=== PATIENT | female | born 1960 | race Caucasian/White ===

== ENCOUNTER 2019-12-21 23:39 | Inpatient (IN) | payer MEDICAID, OTHER ==
[~2019-12-21] VITALS: Ht 160 cm; Wt 72.1 kg
[2019-12-21] MEDS ORDERED: ALBUTEROL SULF 2.5 MG/0.5ML(0.5%) NEB SOLN NEB ONE (23:45)
[2019-12-21] MEDS ORDERED: IPRATROPIUM BROM 0.5 MG/2.5ML INH SOL NEB ONE (23:45)
[2019-12-22 00:19] LABS: Basophils # (auto) 0.1 10 ^3/uL (0-0.2); Basophils % (auto) 0.9 % (0.0-2.0); Eosinophils # (auto) 0.1 10 ^3/uL (0-0.8); Eosinophils % (auto) 1.1 % (0.0-7.0); Hematocrit 42.3 % (36.0-46.0); Lymphocytes # (auto) 1.6 10 ^3/uL (0.4-5.4); Lymphocytes % (auto) 21.6 % (10.0-50.0); Mean Corpuscular Hgb Conc. 33.1 g/dL (32.0-36.0); Mean Corpuscular Volume 93.6 fL (80.0-100.0); Monocytes # (auto) 0.8 10 ^3/uL (0-1.3); Monocytes % (auto) 10.2 % (0.0-12.0); Neutrophils # (auto) 5.1 10 ^3/uL (1.6-8.6); Neutrophils % (auto) 66.2 % (37.0-80.0); Nucleated Red Blood Cells % 0.1 %; Platelet Count (auto) 269 10^3/uL (140-450); Red Blood Cells 4.52 10^6/uL (4.0-5.20); White Blood Cell 7.6 10^3/uL (4.4-10.8)
[2019-12-22] MEDS ORDERED: ALBUTEROL SULF 2.5 MG/0.5ML(0.5%) NEB SOLN NEB ONE (00:30)
[2019-12-22] MEDS ORDERED: methylPREDNISolone SOD SUCC 125 MG/2 ML VL IV ONE (00:30)
[2019-12-22 00:34] LABS: Albumin 3.7 g/dL (3.4-5.0); Anion Gap 8 (5-15); Blood Urea Nitrogen 15 mg/dL (7-18); Calcium 9.4 mg/dL (8.5-10.1); Carbon Dioxide 24 mmol/L (21-32); Chloride 107 mmol/L (98-107); Glucose 124 mg/dL (74-106); Magnesium 1.7 mg/dL (1.6-2.6); Potassium 3.6 mmol/L (3.5-5.1); Sodium 139 mmol/L (136-145)
[2019-12-22 00:36] LABS: Alanine Aminotransferase 57 U/L (13-56); Aspartate Aminotransferase 32 U/L (15-37); BUN/Creatinine Ratio 18.8; GFR African American 94 mL/min; GFR Non-African American 78 mL/min
[2019-12-22 00:41] LABS: Alkaline Phosphatase 110 U/L (45-117); Bilirubin, Total 0.5 mg/dL (0.2-1.0); Total Protein 7.7 g/dL (6.4-8.2)
[2019-12-22] MEDS ORDERED: FUROSEMIDE 40 MG/4 ML VIAL IV ONE (01:45)
[2019-12-22] MEDS ORDERED: cefTRIAXone 1GM/50ML D5W 50 ML IV ONE (02:00)
[2019-12-22] MEDS ORDERED: AZITHROMYCIN 500MG/ 250ML 250 ML IV ONE (02:00)
[2019-12-22] MEDS ORDERED: NITROGLYCERIN 0.4 MG SL TAB SL PRN (02:30)
[2019-12-22] MEDS ORDERED: MORPHINE SULF INJ 2 MG/ML SYRINGE 1ML IV PRN (02:30)
[2019-12-22] MEDS ORDERED: DEXTROSE (50%) 50ML SYRG IV PRN (02:30)
[2019-12-22] MEDS ORDERED: ONDANSETRON HCL 4 MG/2 ML VIAL IV PRN (02:30)
[2019-12-22] MEDS ORDERED: TEMAZEPAM 15 MG CAP PO PRN (02:30)
[2019-12-22 02:44] VITALS: BP 166/91
[2019-12-22 03:45] VITALS: BP 141/92
--- NOTE | 2019-12-22 03:45 | NUR ---
Telemetry admit from ER KETAN KEMP admitted to Telemetry unit after SBAR received. Patient oriented to AMADOR STEWART, RN primary RN, unit, room, bed, and unit policies regarding patient care and visiting hours. Patient now on continuous telemetry monitoring, tele box # 4 and telemetry reading on arrival to unit is [id number]. Patient placed on bedside oxygen, weighed by bedscale and encouraged to call if they need something. All questions and concerns addressed, patient verbalized understanding.
[2019-12-22] MEDS ORDERED: FAM20T GT (05:10)
[2019-12-22] MEDS ORDERED: ASPI-231 PO (05:10)
[2019-12-22] MEDS ORDERED: DIGO0.25 PO (05:10)
[2019-12-22] MEDS ORDERED: CARV25TA55 PO (05:10)
[2019-12-22] MEDS ORDERED: ATO40T PO (05:10)
[2019-12-22] MEDS ORDERED: FURO1TAB31 PO (05:10)
[2019-12-22] MEDS: InsuLIN REG 1unit/0.01ml Soln (100units/ml) SC SCH ×4 (06:29→21:32)
[2019-12-22] MEDS: ACCU-CHEK COMFORT CURVE STRIP VI SCH ×4 (06:30→21:33)
--- NOTE | 2019-12-22 07:20 | NUR ---
Opening Shift Note Assumed care of patient, awake and alert. No S/S of distress, reports SOB at rest, on 3l nc, reports mild body aches. Instructed on POC and to call for assist PRN, will continue to monitor for changes Q1hr and PRN.
[2019-12-22] MEDS: IPRATROPIUM BROM 0.5 MG/2.5ML INH SOL NEB SCH ×3 (07:28→19:39)
[2019-12-22] MEDS: ALBUTEROL SULF 2.5 MG/0.5ML(0.5%) NEB SOLN NEB SCH ×3 (07:28→19:38)
[2019-12-22] MEDS ORDERED: IOHEXOL 350 MG/ML 100ML IJ ONE (07:59)
[2019-12-22 09:00] VITALS: BP 151/83
[2019-12-22] MEDS ORDERED: MAGNESIUM SULFATE 1GM/100ML 100 ML IV ONE (09:45)
[2019-12-22] MEDS: CLOPIDOGREL BISULFATE 75 MG TAB PO SCH (10:00)
[2019-12-22] MEDS ORDERED: FUROSEMIDE 40 MG TAB PO SCH (10:00)
[2019-12-22] MEDS ORDERED: methylPREDNISolone SOD SUCC 125 MG/2 ML VL IV SCH (10:00)
[2019-12-22] MEDS ORDERED: ASPirin 81 mg TAB PO SCH (10:00)
[2019-12-22] MEDS: PANTOPRAZOLE 40 MG TAB PO SCH (10:41)
[2019-12-22] MEDS: NICOTINE 14 MG/24HR TOPICAL PATCH TD SCH (10:42)
[2019-12-22] MEDS: APIXABAN 5 MG TAB PO SCH ×2 (10:43→21:30)
[2019-12-22] MEDS: LOSARTAN POTASSIUM 25 MG TAB PO SCH (10:43)
[2019-12-22] MEDS: CARVEDILOL 12.5 MG TAB PO SCH ×2 (10:44→21:31)
[2019-12-22] MEDS: ACETAMINOPHEN 325 MG TAB PO PRN ×2 (11:40→17:25)
[2019-12-22 13:00] VITALS: BP 132/85
[2019-12-22 17:00] VITALS: BP 151/85
[2019-12-22] MEDS ORDERED: FUROSEMIDE 40 MG/4 ML VIAL IV SCH (18:00)
[2019-12-22] MEDS: FUROSEMIDE 100 MG/10ML VIAL IV SCH (18:49)
--- NOTE | 2019-12-22 19:41 | NUR ---
RT NOTE PT WAS SEEN BY RT FOR HHN TX. PT TOLERATES WELL VIA MASK. NO ADVERSE REACTION NOTED. CONT ORDERED Addendum: 12/22/19 at 1942 by Kristin Hall RT Amended: Links added.
[2019-12-22] MEDS: methylPREDNISolone SOD SUCC 125 MG/2 ML VL IV SCH (21:31)
[2019-12-22] MEDS: POTASSIUM CHL 10 Meq TABLET PO SCH (21:32)
[2019-12-22 22:00] VITALS: BP 146/76
[2019-12-22] MEDS ORDERED: ATORVASTATIN 20 MG TAB PO SCH (22:00)
[2019-12-23] MEDS: ALBUTEROL SULF 2.5 MG/0.5ML(0.5%) NEB SOLN NEB SCH ×3 (00:28→11:33)
[2019-12-23] MEDS: IPRATROPIUM BROM 0.5 MG/2.5ML INH SOL NEB SCH ×3 (00:28→11:33)
--- NOTE | 2019-12-23 00:31 | NUR ---
RT NOTE PT WAS SEEN BY RT FOR HHN TX. PT TOLERATES WELL VIA MASK. NO ADVERSE REACTION NOTED. CONT ORDERED Addendum: 12/23/19 at 0032 by Kristin Hall RT Amended: Links added.
[2019-12-23] MEDS ORDERED: cefTRIAXone 1GM/50ML D5W 50 ML IV SCH (02:00)
[2019-12-23] MEDS: methylPREDNISolone SOD SUCC 125 MG/2 ML VL IV SCH ×2 (03:55→09:41)
[2019-12-23 05:15] VITALS: BP 122/74
[2019-12-23] MEDS: FUROSEMIDE 100 MG/10ML VIAL IV SCH (05:45)
[2019-12-23] MEDS: ACCU-CHEK COMFORT CURVE STRIP VI SCH ×2 (06:00→12:55)
[2019-12-23] MEDS: InsuLIN REG 1unit/0.01ml Soln (100units/ml) SC SCH ×2 (06:02→11:30)
[2019-12-23 06:57] LABS: Basophils # (auto) 0 10 ^3/uL (0-0.2); Basophils % (auto) 0.2 % (0.0-2.0); Eosinophils # (auto) 0 10 ^3/uL (0-0.8); Hematocrit 43.8 % (36.0-46.0); Hemoglobin 14.7 g/dL (12.2-16.2); Lymphocytes # (auto) 1.2 10 ^3/uL (0.4-5.4); Lymphocytes % (auto) 7.5 % (10.0-50.0); Mean Corpuscular Hemoglobin 31.4 pg (28.0-32.0); Mean Corpuscular Hgb Conc. 33.5 g/dL (32.0-36.0); Mean Corpuscular Volume 93.7 fL (80.0-100.0); Monocytes # (auto) 0.4 10 ^3/uL (0-1.3); Monocytes % (auto) 2.4 % (0.0-12.0); Neutrophils # (auto) 14.2 10 ^3/uL (1.6-8.6); Neutrophils % (auto) 89.9 % (37.0-80.0); Nucleated Red Blood Cells % 0.1 %; Platelet Count (auto) 313 10^3/uL (140-450); Red Blood Cells 4.67 10^6/uL (4.0-5.20); Red Cell Distribution Width 14.3 % (11.8-14.3); White Blood Cell 15.8 10^3/uL (4.4-10.8)
[2019-12-23 07:08] LABS: BUN/Creatinine Ratio 32.2; Calcium 9.9 mg/dL (8.5-10.1); Potassium 3.7 mmol/L (3.5-5.1)
--- NOTE | 2019-12-23 07:17 | NUR ---
Opening Shift Note Assumed care of patient, awake and alert, continue to report headache. No S/S of distress, SOB with activity. Instructed on POC and to call for assist PRN, will continue to monitor for changes Q1hr and PRN.
[2019-12-23 09:17] VITALS: BP 110/68
[2019-12-23] MEDS: CARVEDILOL 12.5 MG TAB PO SCH (09:42)
[2019-12-23] MEDS: LOSARTAN POTASSIUM 25 MG TAB PO SCH (09:43)
[2019-12-23] MEDS: PANTOPRAZOLE 40 MG TAB PO SCH (09:44)
[2019-12-23] MEDS: POTASSIUM CHL 10 Meq TABLET PO SCH (09:44)
[2019-12-23] MEDS: APIXABAN 5 MG TAB PO SCH (09:44)
[2019-12-23] MEDS: CLOPIDOGREL BISULFATE 75 MG TAB PO SCH (09:44)
[2019-12-23] MEDS: NICOTINE 14 MG/24HR TOPICAL PATCH TD SCH (09:45)
[2019-12-23] MEDS ORDERED: FURO1TAB31 PO (10:27)
[2019-12-23] MEDS ORDERED: APIX5TAB PO (10:27)
[2019-12-23] MEDS ORDERED: LOS25T PO (10:27)
[2019-12-23] MEDS ORDERED: POTA-167 PO (10:27)
[2019-12-23 11:29] VITALS: BP 121/68
--- NOTE | 2019-12-23 12:30 | NUR ---
Daughter Kasey called regarding discharge, awaiting call back. Patient notified.
[2019-12-23 13:17] VITALS: BP 127/73
--- NOTE | 2019-12-23 15:07 | NUR ---
Discharge instructions given as ordered. Encourage to follow up with PMD and cardiac md as instructed. All questions and concerns addressed. Patient verbalized understanding. Medication reconciliation form completed and copy given to patient. IV removed with catheter intact, pressure dressing applied, . Telemetry unit returned to ICU. Patient taken to vehicle via wheelchair with all personal belongings, accompanied by staff and family member. No distress noted at time of departure.
== END 2019-12-23 15:10 | disposition home or self-care (01) | DRG 194 ==
LOC: ER 23:41 → TELE-EAST 23:42
PROVIDERS: ADMIT Nurse Practitioner; ATTEND Hospitalist
DX: I11.0 Hypertensive heart disease with heart failure (principal); J44.1 Chronic obstructive pulmonary disease with (acute) exacerbation; I42.0 Dilated cardiomyopathy; I50.33 Acute on chronic diastolic (congestive) heart failure; I48.0 Paroxysmal atrial fibrillation; J45.901 Unspecified asthma with (acute) exacerbation; E11.9 Type 2 diabetes mellitus without complications; Z95.810 Presence of automatic (implantable) cardiac defibrillator; Z80.52 Family history of malignant neoplasm of bladder; Z80.41 Family history of malignant neoplasm of ovary; Z80.8 Family history of malignant neoplasm of other organs or systems; E78.5 Hyperlipidemia, unspecified; F17.210 Nicotine dependence, cigarettes, uncomplicated; Z79.84 Long term (current) use of oral hypoglycemic drugs; Z71.6 Tobacco abuse counseling
CPT/HCPCS: 36415; 71045; 78582; 80048; 80053; 82962; 83735; 83880; 84484; 85025; 85379; 87081; 87804; 93005; 93306; 93970; 94640; 94644; G0378; J0696; J1815